=== PATIENT | female | born 1940 | race Caucasian/White ===

== ENCOUNTER → 2022-06-03 13:43 | Outpatient (BNVA) | payer MEDICARE, SELFPAY | PROVIDERS: Visit Provider Nurse Practitioner Family | DX: R30.0 Dysuria (principal) | CPT/HCPCS: 81000; 81003 ==

== ENCOUNTER → 2022-09-02 10:43 | Outpatient (BNVA) | payer MEDICARE, SELFPAY | PROVIDERS: Visit Provider Nurse Practitioner Family | DX: R06.02 Shortness of breath (principal); U09.9 Post COVID-19 condition, unspecified; R53.1 Weakness | CPT/HCPCS: 71046; 80053; 81000; 85025 ==

== ENCOUNTER → 2022-09-21 11:00 | Outpatient (BNVA) | payer MEDICARE, SELFPAY | PROVIDERS: Visit Provider Nurse Practitioner Family | DX: M54.9 Dorsalgia, unspecified (principal) | CPT/HCPCS: 81000 ==

== ENCOUNTER → 2023-02-13 16:02 | Outpatient (BNVA) | payer MEDICARE, SELFPAY | PROVIDERS: PCP Family Medicine; Visit Provider Family Medicine | DX: N23 Unspecified renal colic (principal) | CPT/HCPCS: 81003; 87086 ==

== ENCOUNTER → 2023-07-18 11:41 | Outpatient (BNVA) | payer MEDICARE, SELFPAY | PROVIDERS: PCP Nurse Practitioner Family; Visit Provider Nurse Practitioner Family | DX: R30.0 Dysuria (principal) | CPT/HCPCS: 81000 ==

== ENCOUNTER 2024-01-08 16:04 | Emergency (ER) | payer MEDICARE, SELFPAY ==
[2024-01-08 16:08] VITALS: BP 152/83; PULSE 75; RESP 16; TEMP 36.6; O2SAT 96
[2024-01-08 16:56] LABS: Basophils # 0.1 10^3/uL (0.0-0.1); Basophils % 0.5 %; Eosinophils % 0.4 %; Hematocrit 39.8 % (36-47); Lymphocytes # 2.5 10^3/uL (0.8-4.8); Lymphocytes % 23.1 %; Mean Corpuscular HGB Conc 32.7 g/dL (30-55); Mean Corpuscular Volume 88.6 fl (85-98); Mean Platelet Volume 10.7 fL (7.4-10.4); Monocytes # 0.9 10^3/uL (0.2-0.9); Monocytes % 7.9 %; Neutrophils # 7.33 10^3/uL (1.8-7.7); Neutrophils % 67.7 %; Nucleated Red Blood Cells % 0 %; Platelet Count 217 10^3/cmm (157-399); Red Blood Count 4.49 10^6/uL (3.85-5.65); Red Cell Distribution Width 12.2 % (12.1-15.1)
[2024-01-08 17:12] LABS: Alanine Aminotransferase 11 U/L (0-33); Albumin Level 4.2 g/dL (3.5-5.2); Alkaline Phosphatase 92 U/L (35-105); Anion Gap 14.6 (5-19); Aspartate Amino Transferase 16 U/L (0-32); Blood Urea Nitrogen 16 mg/dL (8-23); Calcium 9.2 mg/dL (8.5-10.5); Carbon Dioxide 27 mmol/L (22-29); Chloride 101 mmol/L (98-107); Creatinine Clr Calc Pharmacy 53.3613; Globulin 3.5 g/dL (1.3-4.6); Glucose 123 mg/dL (65-115); Lipase 14 U/L (13-60); Osmolality Calculated 291 mOsm/kg (285-295); Potassium 3.6 mmol/L (3.5-5.1); Sodium 139 mmol/L (136-145); Total Bilirubin 0.6 mg/dL (0.15-1.2); Total Protein 7.7 g/dL (6.6-8.7)
--- NOTE | 2024-01-08 18:44 | W.ED.ABDPA2 ---
HPI - Abdominal Pain General: Chief Complaint: Abdominal Pain Stated Complaint: abd and back pain Time Seen by Provider: 01/08/24 18:39 History of Present Illness: 83-year-old female who presents to the emergency room with lower abdominal pain. She describes pain in her low back bilaterally that goes around into the front of her abdomen. Seems to have some position allergy. She says it is hurting a lot now that she is sitting down and also hurts when she moves. No fevers. No nausea or vomiting. She was seen at a urgent care and was told her urine was clear there. Review of Systems Narrative: Constitutional symptoms: Negative except as documented in HPI. Skin symptoms: Negative except as documented in HPI. Eye symptoms: Negative except as documented in HPI. ENMT symptoms: Negative except as documented in HPI. Respiratory symptoms: Negative except as documented in HPI. Cardiovascular symptoms: Negative except as documented in HPI. Gastrointestinal symptoms: Negative except as documented in HPI. Genitourinary symptoms: Negative except as documented in HPI. Musculoskeletal symptoms: Negative except as documented in HPI. Neurologic symptoms: Negative except as documented in HPI. Psychiatric symptoms: Negative except as documented in HPI. Endocrine symptoms: Negative except as documented in HPI. [facility] ED PFSH: Social History Smoking and tobacco/nicotine status: never used tobacco/nicotine Alcohol intake: current Alcohol intake frequency: holidays/special occasions only Female Reproductive History: Spontaneous abortions: No Physical Exam Narrative: EXAM NARRATIVE: General: Alert, no acute distress. Skin: Warm, dry. Head: Normocephalic, atraumatic. Neck: Supple, trachea midline. Eye: Extraocular movements are intact. Ears, nose, mouth and throat: mucosa moist. Cardiovascular: Regular, Normal peripheral perfusion. Respiratory: Lungs are clear to auscultation, respirations are non-labored, breath sounds are equal, Symmetrical chest wall expansion. Gastrointestinal: Soft, moderate diffuse lower abdominal tenderness, Non distended, Normal bowel sounds. Musculoskeletal: Normal ROM, no deformity. Neurological: Alert and oriented, No focal neurological deficit observed. Psychiatric: Cooperative, appropriate mood & affect. Course Vital Signs: Vital signs: Vital Signs Temperature 97.9 F 01/08/24 16:08 Pulse Rate 74 01/08/24 21:33 Respiratory Rate 16 01/08/24 21:33 Blood Pressure 130/76 01/08/24 19:31 Pulse Oximetry 97 01/08/24 21:33 Oxygen Delivery Me thod Room Air 01/08/24 16:08 MDM - Abdominal Pain Medical Decision Making Medical decision making: Differential diagnosis including but not limited to and based on the above HPI, review of systems and physical exam: Would have concern primarily for urinary tract infection or diverticulitis. Possibly also a colitis or appendicitis. Also this could be musculoskeletal pain given the movement component. But it does seem to hurt in her abdomen whenever I press on it. Orders placed to evaluate differential diagnosis based on the above differential, HPI and physical exam Lab Review: Laboratory results were reviewed and interpreted by myself the emergency room physician. Mild leukocytosis with a white count 10.8. Hemoglobin is normal at 13. BUN and creatinine are normal at 16 and 0.6. Urinalysis shows no signs of infection. CT of the abdomen pelvis with contrast. Diverticulosis with diverticulitis in the sigmoid colon. This was reviewed and interpreted by myself the emergency room physician. I also reviewed the radiology report. I reviewed the patient's medical record. Reexamination: Patient remained stable. She still has pain but this is improved somewhat. No altered mental status. No focal motor deficits. No increased work of breathing. We discussed the findings and she agrees with the plan. Assessment and plan: Diverticulitis Dehydration ?IV Cipro and IV Flagyl in the emergency room ? Normal saline bolus in the emergency room - Patient has required multiple doses of morphine after receiving some Toradol. - I also sent her home with a couple of [place]'s for tonight. - Discharged home - Discussed findings and plan with patient. Answered any questions. - All laboratory values were reviewed and interpreted personally by myself, the ER physician - All imaging was reviewed and interpreted personally by myself, the ER physician. - Evaluation and treatment of this problem were appropriate in the emergency setting Lab Data 01/08/24 16:50 01/08/24 16:50 Labs/Radiology: Radiology Impressions Abdomen/Pelvis CT 01/08/24 18:49 IMPRESSION: 1. Colonic diverticulosis. Changes consistent with moderate diverticulitis in the sigmoid colon. 2. Incidental/nonacute findings are listed in the report. Laboratory Results WBC 10.80 10^3/uL (3.29-11.43) 01/08/24 16:50 RBC 4.49 10^6/uL (3.85-5.65) 01/08/24 16:50 Hgb 13.00 g/dL (11.27-16.99) 01/08/24 16:50 Hct 39.8 % (36-47) 01/08/24 16:50 MCV 88.6 fl (85-98) 01/08/24 16:50 MCH 29.0 pg (27-33) 01/08/24 16:50 MCHC 32.7 g/dL (30-55) 01/08/24 16:50 RDW 12.2 % (12.1-15.1) 01/08/24 16:50 Plt Count 217 10^3/cmm (157-399) 01/08/24 16:50 MPV 10.7 fL (7.4-10.4) H 01/08/24 16:50 Neut % (Auto) 67.7 % 01/08/24 16:50 Lymph % (Auto) 23.1 % 01/08/24 16:50 Randolph % (Auto) 7.9 % 01/08/24 16:50 Eos % (Auto) 0.4 % 01/08/24 16:50 Baso % (Auto) 0.5 % 01/08/24 16:50 Neut # (Auto) 7.33 10^3/uL (1.8-7.7) 01/08/24 16:50 Lymph # (Auto) 2.5 10^3/uL (0.8-4.8) 01/08/24 16:50 Randolph # (Auto) 0.9 10^3/uL (0.2-0.9) 01/08/24 16:50 Eos # (Auto) 0.0 10^3/uL (0.0-0.8) 01/08/24 16:50 Baso # (Auto) 0.1 10^3/uL (0.0-0.1) 01/08/24 16:50 Nucleated RBC % (auto) 0 % 01/08/24 16:50 Nucleated RBCs # 0.0 /100WBC 01/08/24 16:50 Sodium 139 mmol/L (136-145) 01/08/24 16:50 Potassium 3.6 mmol/L (3.5-5.1) 01/08/24 16:50 Chloride 101 mmol/L (98-107) 01/08/24 16:50 Carbon Dioxide 27 mmol/L (22-29) 01/08/24 16:50 Anion Gap 14.6 (5-19) 01/08/24 16:50 BUN 16 mg/dL (8-23) 01/08/24 16:50 Creatinine 0.6 mg/dL (0.5-0.9) 01/08/24 16:50 GFR Calculation Not Reportable 01/08/24 16:50 Glucose 123 mg/dL (65-115) H 01/08/24 16:50 Calculated Osmolality 291 mOsm/kg (285-295) 01/08/24 16:50 Calcium 9.2 mg/dL (8.5-10.5) 01/08/24 16:50 Total Bilirubin 0.6 mg/dL (0.15-1.2) 01/08/24 16:50 AST 16 U/L (0-32) 01/08/24 16:50 ALT 11 U/L (0-33) 01/08/24 16:50 Alkaline Phosphatase 92 U/L (35-105) 01/08/24 16:50 Total Protein 7.7 g/dL (6.6-8.7) 01/08/24 16:50 Albumin 4.2 g/dL (3.5-5.2) 01/08/24 16:50 Globulin 3.5 g/dL (1.3-4.6) 01/08/24 16:50 Lipase 14 U/L (13-60) 01/08/24 16:50 Urine Color Yellow (Yellow) 01/08/24 18:57 Urine Appearance Clear (CLEAR) 01/08/24 18:57 Urine pH 5 (5-7) 01/08/24 18:57 Ur Specific Joseph 1.015 (1.005-1.030) 01/08/24 18:57 Urine Protein Neg (Negative) 01/08/24 18:57 Urine Glucose (UA) Norm (Normal) 01/08/24 18:57 Urine Ketones Negative (Negative) 01/08/24 18:57 Urine Blood 2+ (Negative) H 01/08/24 18:57 Urine Nitrate Negative (Negative) 01/08/24 18:57 Urine Bilirubin Neg (Negative) 01/08/24 18:57 Urine Urobilinogen Norm mg/dL (Negative) 01/08/24 18:57 Ur Leukocyte Esterase Trace (Negative) H 01/08/24 18:57 Urine RBC 5-10 /hpf (0-2) H 01/08/24 18:57 Urine WBC 0-4 /hpf (0-5) H 01/08/24 18:57 Ur Squamous Epith Cells 5-10 /hpf (0-5) H 01/08/24 18:57 Amorphous Sediment Not Reportable 01/08/24 18:57 Urine Bacteria 1+ /hpf (NONE) H 01/08/24 18:57 All radiology interpretation(s) finalized by discharge Discharge Plan Discharge Patient Disposition: Home Clinical Impression: Diverticulitis Condition: Stable Prescriptions: New hydrocodone-acetaminophen 5-325 mg tablet 1 tab PO Q6H PRN (Reason: pain) Qty: 20 0RF metronidazole 500 mg tablet 500 mg PO Q8H 10 Days Qty: 30 0RF ciprofloxacin HCl 500 mg tablet 500 mg PO BID 10 Days Qty: 20 0RF Miralax 17 gram/dose powder 17 g PO DAILY Qty: 510 0RF Rx Instructions: Take 1 scoop daily while taking pain medications. Discharge Orders: Discharge ED (Routine); Ordered 01/08/24 Ordered By: Dary Waller Referrals: Ej Patterson, [Primary Care Provider] - 4-7 days Discharge Diet: Advance as tolerated Discharge Activity: Increase activity as tolerated Patient Instructions: Diverticulitis (ED), Diverticulitis Diet (ED), Opioid Safety, Pain Management Activity Restrictions/Additional Instructions: Thank you for choosing [facility] for your healthcare needs today. Please realize this is an emergency room and that we are providing you with a medical screening exam and this may not be complete and all inclusive of all the testing and or work up that you may need to determine your ailment or severity of your illness. You have been screened and evaluated and felt safe for discharge. Health conditions do change or evolve sometimes and as such it is important that you follow up with your Primary Doctor to be re checked, 3-5 days is a general good time frame for follow up. You are always welcome to return to the ED for re assessment if your symptoms are worsening or you have new concerns Coding Level of Care Code ED Technical Support Technician for Kenya Mccann
--- NOTE | 2024-01-08 18:49 | CTR_ITS ---
PROCEDURE INFORMATION: Exam: CT Abdomen And Pelvis With Contrast Exam date and time: 01/08/2024 7:22 PM Age: 83 years old Clinical indication: Abdominal pain; Generalized; Additional info: Lower abdominal and back pain TECHNIQUE: Imaging protocol: Computed tomography of the abdomen and pelvis with contrast. Radiation optimization: All CT scans at this facility use at least one of these dose optimization techniques: automated exposure control; mA and/or kV adjustment per patient size (includes targeted exams where dose is matched to clinical indication); or iterative reconstruction. Contrast material: OMNI 350; Contrast volume: 100 ml; Contrast route: INTRAVENOUS (IV); COMPARISON: CR XR chest 2V* [id number] 09/02/2022 11:05 AM RADIATION DOSE METRICS: Total DLP (mGy-cm): 775.75 FINDINGS: Lungs: Visualized lungs are clear. Calcified granuloma in the right middle lobe. Pleural spaces: No pleural effusion. Heart: Stable moderate enlargement of the visualized portions of the heart. Liver: The liver is unremarkable. Gallbladder and bile ducts: Patient has had a previous cholecystectomy. Dilatation of the biliary ducts, not unexpected in a patient who has had a prior cholecystectomy. Pancreas: Marked atrophy of the pancreatic parenchyma. No pancreatic ductal dilatation. Spleen: The spleen is unremarkable. Adrenal glands: The right and left adrenal glands are unremarkable. Kidneys and ureters: 2 simple cysts in the right kidney, the larger measures 1.4 cm. New lineThe left kidney is unremarkable. The right and left ureters are unremarkable. Stomach and bowel: Numerous diverticula throughout the entire colon. Moderate wall thickening of the proximal sigmoid colon with surrounding inflammatory change. Multiple foci of increased density in small bowel loops that may represent swallowed medications or possibly enteroliths. Appendix: The appendix is visualized and is unremarkable. No evidence of appendicitis. Intraperitoneal space: No free intraperitoneal air. No ascites. No loculated fluid collections to suggest an abscess. Vasculature: Mild atherosclerotic changes in the visualized arteries. No evidence for aortic aneurysm or aortic dissection. Hepatic veins, portal veins, splenic vein, and SMV are patent. Lymph nodes: No lymphadenopathy. Urinary bladder: The bladder is unremarkable for the degree of distension. Reproductive: Patient has had a previous hysterectomy. The right ovary is not definitely visualized, not an expected in a postmenopausal female. This may be due to ovarian atrophy. Alternatively, the patient may have had a previous right oophorectomy. The left ovary is unremarkable. Bones/joints: Degenerative changes in the spine, sacroiliac joints, and hips. Soft tissues: No acute abnormality in the extra-abdominal soft tissues. CT/CT abdomen pelvis w con* [id number] IMPRESSION: 1. Colonic diverticulosis. Changes consistent with moderate diverticulitis in the sigmoid colon. 2. Incidental/nonacute findings are listed in the report.
[2024-01-08 18:50] VITALS: BP 165/89; PULSE 74; RESP 18; O2SAT 99
[2024-01-08] MEDS: ondansetron 2 mg/ML SDV 2 mL 4 MG IVP (18:56)
[2024-01-08] MEDS: morphine 4 mg/mL SDV 1 mL IVP ×2 (18:56→20:07)
[2024-01-08 19:20] LABS: Add Urine Microscopic? YES; Bilirubin Urine Neg (Negative); Blood Urine 2+ (Negative); Glucose Urine UA Norm (Normal); Ketones Urine Negative (Negative); Leukocyte Esterase Urine Trace (Negative); Nitrate Urine Negative (Negative); Protein Urine Neg (Negative); Specific Gravity, Urine 1.015 (1.005-1.030); Urine Appearance Clear (CLEAR); Urine Color Yellow (Yellow); Urobilinogen Urine Norm (Negative); pH Urine 5 (5-7)
[2024-01-08 19:21] LABS: Add Urine Culture? No; Bacteria Urine 1+ /hpf; WBC Urine 0-4 /hpf (0-5)
[2024-01-08] MEDS: iohexol 350 mg/mL 500 mL Btl (per mL) IV (19:25)
[2024-01-08 19:31] VITALS: BP 130/76; PULSE 78; RESP 16; O2SAT 98
[2024-01-08] MEDS: metroNIDAZOLE IV 500 MG/100 ML PREMIX 100 MG IV (21:08)
[2024-01-08] MEDS: sodium chloride 0.9% 1,000 ML 999 ML IV (21:08)
[2024-01-08] MEDS: ciprofloxacin 400 MG/200 ML PREMIX 200 MG IV (21:08)
[2024-01-08 21:33] VITALS: PULSE 74; RESP 16; O2SAT 97
[2024-01-08] MEDS: ondansetron 4 MG Tablet PO (22:13)
== END 2024-01-08 22:20 | disposition home or self-care (01) ==
PROVIDERS: Emergency Medicine; Emergency Provider Emergency Medicine; PCP Family Medicine
DX: K57.92 Diverticulitis of intestine, part unspecified, without perforation or abscess without bleeding (principal)
CPT/HCPCS: 36415; 74177; 80053; 81000; 81001; 83690; 85025; 87086; 96365; 96367; 96375; 96376; 99285; J0744; J2270; J2405; J3490; J7030; Q0162; Q9967

== ENCOUNTER 2024-01-30 11:58 | Emergency (ER) | payer MEDICARE, SELFPAY ==
[2024-01-30 12:00] VITALS: BP 175/90; PULSE 65; TEMP 36.6; O2SAT 96; BMI 29.7
--- NOTE | 2024-01-30 12:01 | CTR_ITS ---
PROCEDURE INFORMATION: Exam: CT Abdomen And Pelvis With Contrast Exam date and time: 01/30/2024 2:03 PM Age: 83 years old Clinical indication: Abdominal pain; Generalized; Additional info: Abd pain TECHNIQUE: Imaging protocol: Computed tomography of the abdomen and pelvis with contrast. Radiation optimization: All CT scans at this facility use at least one of these dose optimization techniques: automated exposure control; mA and/or kV adjustment per patient size (includes targeted exams where dose is matched to clinical indication); or iterative reconstruction. Contrast material: OMNI 350; Contrast volume: 100 ml; Contrast route: INTRAVENOUS (IV); COMPARISON: CT abdomen pelvis w con* [id number] 01/08/2024 7:22 PM RADIATION DOSE METRICS: Total DLP (mGy-cm): 767 FINDINGS: Lungs: Subsegmental bibasilar atelectasis. The visualized lung bases are otherwise grossly clear. Diaphragm: No evidence of diaphragmatic defect. Liver: No focal hepatic lesion. Gallbladder and biliary ducts: Status post cholecystectomy. Mild intrahepatic biliary dilatation. There is mild extrahepatic biliary dilatation, frequently seen post cholecystectomy. CBD measures up to 10 mm. No evidence of intraductal stone. No significant change since prior exam from January 08, 2024. Pancreas: Moderately atrophic. Otherwise grossly unremarkable. Spleen: Unremarkable. Adrenal glands: Unremarkable. Kidneys and ureters: There are simple appearing right-sided renal cysts for which dedicated imaging follow-up is not required. Otherwise no evidence of renal parenchymal abnormality. No hydronephrosis or ureteral stone. Stomach and bowel: Extensive sigmoid colonic diverticulosis without evidence of acute diverticulitis. There is mild haziness in the region of the proximal sigmoid colon, possibly reflecting subacute or resolving diverticulitis. No bowel obstruction. There is pancolonic wall thickening raising the question of an infectious or inflammatory colitis. Appendix: Normal appendix. Intraperitoneal space: No evidence of free air or fluid collection. Vasculature: No aneurysmal dilatation or dissection of the abdominal aorta. The celiac trunk, SMA and NORBERTO are grossly patent. No evidence of IVC thrombus. The portal vein, SMV and splenic veins are grossly patent. Lymph nodes: No adenopathy. Urinary bladder: Grossly unremarkable. Reproductive: Prior hysterectomy. Bones/joints: No evidence of acute fracture or aggressive osseous lesion. Right-sided L2-L3 disc osteophyte complex with severe endplate degeneration. Severe osteoarthritis of the left hip. Soft tissues: No evidence of fluid collection or hematoma in the superficial soft tissues. CT/CT abdomen pelvis w con* [id number] IMPRESSION: 1. Mild pancolonic wall thickening raising the question of an infectious or inflammatory colitis. 2. Sigmoid diverticulosis with mild haziness in the region of the proximal sigmoid colon, possibly reflecting subacute or resolving diverticulitis.
--- NOTE | 2024-01-30 12:06 | ED_ITS ---
HPI - Abdominal Pain 2 General: Chief Complaint: Abdominal Pain Stated Complaint: ABD Pain Time Seen by Provider: 01/30/24 12:00 Source: patient and EMS Mode of arrival: EMS Limitations: no limitations History of Present Illness: 83-year-old female who states that she h as been having increasing left lower abdominal pain she is diagnosed with diverticulitis here on January 14 she is finished her antibiotics she saw her PCP today and sent her up here concerned that she had possibly ruptured patient rates her pain a 4 out of 10 currently denies any vomiting or diarrhea. Associated Symptoms: Denies chills, diarrhea, dysuria, fever(s), nausea and vomiting Review of Systems 2 Const: Denies: fever(s), chills, body aches or change in appetite ENMT: Denies: throat pain or dental pain Card: Denies: chest pain Resp: Denies: dyspnea GI: Reports: abdominal pain; Denies: nausea, vomiting or diarrhea : Denies: dysuria Musc: Denies: neck pain or back pain Skin/Breast: Denies: rash Neuro: Denies: headache(s) PFSH ED 2 PFSH: Social History Smoking and tobacco/nicotine status: tobacco/nicotine user, details unknown Alcohol intake: current Alcohol intake frequency: holidays/special occasions only Female Reproductive History: Spontaneous abortions: No Physical Exam 2 Const: COMMON NORMALS: no acute distress, patient oriented x3 and healthy appearing HENMT: COMMON NORMALS: normocephalic and atraumatic HEAD & SCALP: n ormocephalic and atraumatic Neck/C-Spine: COMMON NORMALS: full ROM and supple Chest: COMMONS NORMALS: normal inspection of the chest Resp: COMMON NORMALS: normal respiratory effort Cardio: COMMON NORMALS: regular rate, regular rhythm and No murmurs present (Cardio) RATE: regular rate RHYTHM: regular rhythm GI: COMMON NORMALS: Normal to inspection, nondistended, normoactive bowel sounds present, Soft to palpation and no masses PALPATION: Yes Soft to palpation and Yes Tenderness to palpation present (GI) Details: LLQ Extremity: COMMON NORMALS: normal to inspection and full ROM Neuro: COMMON NORMALS: patient oriented x3, moves all extremities and no focal motor deficits Psych: COMMON NORMALS: mental status grossly normal, Normal thought process present and cooperative THOUGHT PROCESS: Normal thought process present Skin: COMMON NORMALS: no rashes or lesions noted and no wounds GENERAL SKIN EXAM: no rashes or lesions noted Course 2 Vital Signs: Vital signs: Vital Signs Temperature 97.8 F 01/30/24 12:00 Pulse Rate 61 01/30/24 14:19 Respiratory Rate 18 01/30/24 12:18 Blood Pressure 168/73 01/30/24 14:19 Pulse Oximetry 92 01/30/24 14:19 Oxygen Delivery Me thod Room Air 01/30/24 14:19 Oxygen Flow Rate 2 01/30/24 12:18 MDM - Abdominal Pain Medical Decision Making Patient presents with abdominal pain CT showed a possible colitis looks like her diverticulitis is likely improving her white count here is normal she is afebrile I feel she is stable for discharge we will place her on more Cipro Flagyl and pain meds we will get her follow-up with surgery she is return if worsening she understands agrees to plan Medical Records I reviewed the patient's medical records. Lab Data I reviewed the patient's lab results. 01/30/24 12:34 01/30/24 12:34 Labs/Radiology: Radiology Impressions Abdomen/Pelvis CT 01/30/24 12:01 IMPRESSION: 1. Mild pancolonic wall thickening raising the question of an infectious or inflammatory colitis. 2. Sigmoid diverticulosis with mild haziness in the region of the proximal sigmoid colon, possibly reflecting subacute or resolving diverticulitis. Laboratory Results WBC 7.57 10^3/uL (3.29-11.43) 01/30/24 12:34 RBC 4.73 10^6/uL (3.85-5.65) 01/30/24 12:34 Hgb 13.80 g/dL (11.27-16.99) 01/30/24 12:34 Hct 41.2 % (36-47) 01/30/24 12:34 MCV 87.1 fl (85-98) 01/30/24 12:34 MCH 29.2 pg (27-33) 01/30/24 12:34 MCHC 33.5 g/dL (30-55) 01/30/24 12:34 RDW 11.9 % (12.1-15.1) L 01/30/24 12:34 Plt Count 232 10^3/cmm (157-399) 01/30/24 12:34 MPV 10.1 fL (7.4-10.4) 01/30/24 12:34 Neut % (Auto) 67.7 % 01/30/24 12:34 Lymph % (Auto) 25.4 % 01/30/24 12:34 Alexander % (Auto) 5.9 % 01/30/24 12:34 Eos % (Auto) 0.3 % 01/30/24 12:34 Baso % (Auto) 0.3 % 01/30/24 12:34 Neut # (Auto) 5.13 10^3/uL (1.8-7.7) 01/30/24 12:34 Lymph # (Auto) 1.9 10^3/uL (0.8-4.8) 01/30/24 12:34 Alexander # (Auto) 0.5 10^3/uL (0.2-0.9) 01/30/24 12:34 Eos # (Auto) 0.0 10^3/uL (0.0-0.8) 01/30/24 12:34 Baso # (Auto) 0.0 10^3/uL (0.0-0.1) 01/30/24 12:34 Nucleated RBC % (auto) 0 % 01/30/24 12:34 Nucleated RBCs # 0.0 /100WBC 01/30/24 12:34 Sodium 140 mmol/L (136-145) 01/30/24 12:34 Potassium 3.6 mmol/L (3.5-5.1) 01/30/24 12:34 Chloride 102 mmol/L (98-107) 01/30/24 12:34 Carbon Dioxide 25 mmol/L (22-29) 01/30/24 12:34 Anion Gap 16.6 (5-19) 01/30/24 12:34 BUN 11 mg/dL (8-23) 01/30/24 12:34 Creatinine 0.6 mg/dL (0.5-0.9) 01/30/24 12:34 GFR Calculation Not Reportable 01/30/24 12:34 Glucose 98 mg/dL (65-115) 01/30/24 12:34 Calculated Osmolality 289 mOsm/kg (285-295) 01/30/24 12:34 Lactic Acid 1.0 mmol/L (0.5-2.2) 01/30/24 12:34 Calcium 8.6 mg/dL (8.5-10.5) 01/30/24 12:34 Total Bilirubin 0.6 mg/dL (0.15-1.2) 01/30/24 12:34 AST 19 U/L (0-32) 01/30/24 12:34 ALT 12 U/L (0-33) 01/30/24 12:34 Alkaline Phosphatase 94 U/L (35-105) 01/30/24 12:34 Total Protein 6.9 g/dL (6.6-8.7) 01/30/24 12:34 Albumin 3.9 g/dL (3.5-5.2) 01/30/24 12:34 Globulin 3.0 g/dL (1.3-4.6) 01/30/24 12:34 Lipase 12 U/L (13-60) L 01/30/24 12:34 Urine Color Yellow (Yellow) 01/30/24 13:20 Urine Appearance Clear (CLEAR) 01/30/24 13:20 Urine pH 7 (5-7) 01/30/24 13:20 Ur Specific [place] 1.010 (1.005-1.030) 01/30/24 13:20 Urine Protein Neg (Negative) 01/30/24 13:20 Urine Glucose (UA) Norm (Normal) 01/30/24 13:20 Urine Ketones 1+ (Negative) H 01/30/24 13:20 Urine Blood Neg (Negative) 01/30/24 13:20 Urine Nitrate Negative (Negative) 01/30/24 13:20 Urine Bilirubin Neg (Negative) 01/30/24 13:20 Urine Urobilinogen Norm mg/dL (Negative) 01/30/24 13:20 Ur Leukocyte Esterase Trace (Negative) H 01/30/24 13:20 Urine RBC 0-4 /hpf (0-2) H 01/30/24 13:20 Urine WBC 5-10 /hpf (0-5) H 01/30/24 13:20 Ur Squamous Epith Cells 0-4 /hpf (0-5) H 01/30/24 13:20 Ur Transition Epith Cell 0-4 /hpf 01/30/24 13:20 Amorphous Sediment Not Reportable 01/30/24 13:20 Urine Bacteria Trace /hpf (NONE) 01/30/24 13:20 Urine Mucus Trace /hpf 01/30/24 13:20 All radiology interpretation(s) finalized by discharge Discharge Plan Discharge Patient Disposition: Home Clinical Impression: Abdominal pain, Colitis Condition: Stable Prescriptions: New hydrocodone-acetaminophen 5-325 mg tablet 1 tab PO Q6H PRN (Reason: pain) Qty: 14 0RF metronidazole 500 mg tablet 500 mg PO Q8H 7 Days Qty: 21 0RF ciprofloxacin HCl [Cipro] 500 mg tablet 500 mg PO BID Qty: 14 0RF ondansetron 4 mg tablet,disintegrating 4 mg PO Q6H PRN (Reason: nausea and vomiting) Qty: 14 0RF No Action ondansetron 8 mg tablet,disintegrating 8 mg PO Q8H PRN (Reason: nausea and vomiting) Qty: 20 0RF hydrocodone-acetaminophen 5-325 mg tablet 1 tab PO Q6H PRN (Reason: pain) Qty: 20 0RF Miralax 17 gram/dose powder 17 g PO DAILY Qty: 510 0RF Rx Instructions: Take 1 scoop daily while taking pain medications. Discharge Orders: Discharge ED (Routine); Ordered 01/30/24 Ordered By: Denisse Hebert Referrals: Ej Patterson DO [Primary Care Provider] - Tomas Blake DO [Physician] - 1-3 days Discharge Diet: Advance as tolerated Discharge Activity: Resume usual activity Patient Instructions: Abdominal Pain (ED), Colitis (ED), Opioid Safety Coding Level of Care Code ED Pet Crematory Worker for Kenya Mccann
[2024-01-30 12:18] VITALS: BP 175/90; PULSE 60; RESP 18; O2SAT 98
[2024-01-30 12:42] LABS: Basophils % 0.3 %; Eosinophils % 0.3 %; Hematocrit 41.2 % (36-47); Lymphocytes # 1.9 10^3/uL (0.8-4.8); Lymphocytes % 25.4 %; Mean Corpuscular HGB Conc 33.5 g/dL (30-55); Mean Corpuscular Hemoglobin 29.2 pg (27-33); Mean Corpuscular Volume 87.1 fl (85-98); Mean Platelet Volume 10.1 fL (7.4-10.4); Monocytes # 0.5 10^3/uL (0.2-0.9); Monocytes % 5.9 %; Neutrophils # 5.13 10^3/uL (1.8-7.7); Neutrophils % 67.7 %; Nucleated Red Blood Cells % 0 %; Platelet Count 232 10^3/cmm (157-399); Red Blood Count 4.73 10^6/uL (3.85-5.65); Red Cell Distribution Width 11.9 % (12.1-15.1); White Blood Count 7.57 10^3/uL (3.29-11.43)
[2024-01-30 12:59] LABS: Alanine Aminotransferase 12 U/L (0-33); Albumin Level 3.9 g/dL (3.5-5.2); Alkaline Phosphatase 94 U/L (35-105); Anion Gap 16.6 (5-19); Aspartate Amino Transferase 19 U/L (0-32); Blood Urea Nitrogen 11 mg/dL (8-23); Calcium 8.6 mg/dL (8.5-10.5); Carbon Dioxide 25 mmol/L (22-29); Chloride 102 mmol/L (98-107); Creatinine Clr Calc Pharmacy 51.1713; Glucose 98 mg/dL (65-115); Lipase 12 U/L (13-60); Osmolality Calculated 289 mOsm/kg (285-295); Potassium 3.6 mmol/L (3.5-5.1); Sodium 140 mmol/L (136-145); Total Bilirubin 0.6 mg/dL (0.15-1.2); Total Protein 6.9 g/dL (6.6-8.7)
[2024-01-30] MEDS: iohexol 350 mg/mL 500 mL Btl (per mL) IV (14:05)
[2024-01-30] MEDS: morphine 4 mg/mL SDV 1 mL IVP (14:16)
[2024-01-30 14:19] VITALS: BP 168/73; PULSE 61; O2SAT 92
[2024-01-30 14:44] LABS: Add Urine Microscopic? YES; Bilirubin Urine Neg (Negative); Blood Urine Neg (Negative); Glucose Urine UA Norm (Normal); Ketones Urine 1+ (Negative); Leukocyte Esterase Urine Trace (Negative); Nitrate Urine Negative (Negative); Protein Urine Neg (Negative); RBC Urine 0-4 /hpf (0-2); Squamous Epithelial Cell Urine 0-4 /hpf (0-5); Urine Appearance Clear (CLEAR); Urine Color Yellow (Yellow); Urobilinogen Urine Norm (Negative); pH Urine 7 (5-7)
[2024-01-30 14:45] LABS: Bacteria Urine TRACE /hpf; Mucus Urine TRACE /hpf; Transitional Epi Cells Urine 0-4 /hpf
[2024-01-30 14:46] LABS: Add Urine Culture? No
[2024-01-30 16:44] VITALS: BP 168/73; PULSE 61; RESP 18; TEMP 36.6; O2SAT 92
--- NOTE | 2024-02-01 08:03 | DCPLANNER ---
messaged gen surg for er f/u
== END 2024-01-30 16:51 | disposition home or self-care (01) ==
PROVIDERS: Emergency Provider Emergency Medicine; PCP Family Medicine
DX: K52.9 Noninfective gastroenteritis and colitis, unspecified (principal); R10.32 Left lower quadrant pain; Z72.0 Tobacco use
CPT/HCPCS: 36415; 74177; 80053; 81001; 83605; 83690; 85025; 96374; 99285; J2270; Q9967